=== PATIENT | male | born 1970 | race Caucasian/White ===

== ENCOUNTER 2016-05-09 11:45 | Emergency (ER) | payer OTHER ==
[~2016-05-09] VITALS: Ht 182.9 cm; Wt 113.4 kg
[2016-05-09 11:59] VITALS: BP 157/121
--- NOTE | 2016-05-09 14:12 | NUR ---
Patient ambulated to bed 8. RN evaluating patient at bedside.
--- NOTE | 2016-05-09 14:13 | NUR ---
PATIENT PRESENTS TO ED WITH SOB WITH HEADACHE X2 DAYS AND COUGH . DENIES N/V/D; SKIN IS PINK/WARM/DRY; AAOX4 WITH EVEN AND STEADY GAIT; LUNGS CLEAR BL; HR EVEN AND REGULAR; PT DENIES ANY FEVER, CP, AT THIS TIME; PATIENT STATES PAIN OF 3/10 AT THIS TIME; VSS; PATIENT POSITIONED FOR COMFORT; HOB ELEVATED; BEDRAILS UP X2; BED DOWN. ER MD MADE AWARE OF PT STATUS.
--- NOTE | 2016-05-09 14:13 | NUR ---
Dr. Agudelo evaluating patient at bedside.
--- NOTE | 2016-05-09 14:19 | NUR ---
EKG completed by EMT at bedside.
[2016-05-09] MEDS ORDERED: ASPIRIN 325 MG TAB PO ONE (14:20)
[2016-05-09] MEDS ORDERED: NITROGLYCERIN 0.4 MG TAB SL ONE (14:20)
[2016-05-09] MEDS ORDERED: ACETAMINOPHEN EXTRA STRENGTH 500 MG TAB PO ONE (14:20)
--- NOTE | 2016-05-09 17:00 | NUR ---
Patient discharged with v/s stable. Written and verbal after care instructions given and explained. Patient verbalized understanding. Ambulatory with . All questions addressed prior to discharge. Advised to follow up with PMD.
[2016-05-09 17:01] VITALS: BP 132/84
== END 2016-05-09 17:00 | disposition home or self-care (01) ==
LOC: MED 11:45
DX: J06.9 Acute upper respiratory infection, unspecified (principal); R07.81 Pleurodynia; F17.200 Nicotine dependence, unspecified, uncomplicated; I10 Essential (primary) hypertension; Z71.6 Tobacco abuse counseling
CPT/HCPCS: 36415; 71010; 80053; 83880; 84484; 85025; 85610; 85730; 93005; 99285; Q0092

== ENCOUNTER 2016-08-08 11:26 | Emergency (ER) | payer OTHER ==
[~2016-08-08] VITALS: Ht 185.4 cm; Wt 122.5 kg
[2016-08-08 11:39] VITALS: BP 155/102
--- NOTE | 2016-08-08 11:40 | NUR ---
Patient ambulated to OF to be evaluated as fast track by Dr. Matta.
--- NOTE | 2016-08-08 11:42 | NUR ---
Dr. Matta evaluating patient as fast track.
--- NOTE | 2016-08-08 11:48 | NUR ---
PATIENT IS A 45 YO MALE BIB SELF FOR RIGHT EAR PAIN AND THROAT PAIN. AWAKE AND ALERT ON ARRIVAL, NO FEVER AT THIS TIME.
[2016-08-08 12:17] VITALS: BP 142/86
--- NOTE | 2016-08-08 12:18 | NUR ---
Patient discharged with v/s stable. Written and verbal after care instructions given and explained. Patient alert, oriented and verbalized understanding of instructions. Ambulatory with steady gait. All questions addressed prior to discharge. ID band removed. Patient advised to follow up with PMD. Rx of BACTRIM AND TYLENOL given. Patient educated on indication of medication including possible reaction and side effects. Opportunity to ask questions provided and answered.
== END 2016-08-08 12:10 | disposition home or self-care (01) ==
LOC: MED 11:26
DX: H69.91 Unspecified Eustachian tube disorder, right ear (principal); I10 Essential (primary) hypertension
CPT/HCPCS: 99283

== ENCOUNTER 2017-04-18 13:54 | Emergency (ER) | payer OTHER ==
[~2017-04-18] VITALS: Ht 185.4 cm; Wt 125.2 kg
[2017-04-18 14:00] VITALS: BP 139/89
[2017-04-18] MEDS ORDERED: IBUPROFEN 600 MG TAB PO ONE (14:50)
[2017-04-18 15:57] VITALS: BP 149/91
== END 2017-04-18 15:57 | disposition home or self-care (01) ==
LOC: MED 13:54
DX: J06.9 Acute upper respiratory infection, unspecified (principal)
CPT/HCPCS: 99282

== ENCOUNTER 2017-05-11 11:09 | Emergency (ER) | payer OTHER ==
[~2017-05-11] VITALS: Ht 185.4 cm; Wt 124.9 kg
[2017-05-11 11:17] VITALS: BP 147/95
--- NOTE | 2017-05-11 11:24 | NUR ---
PT AMBULATED TO OF1.
--- NOTE | 2017-05-11 11:27 | NUR ---
46M BIB FAMILY C/O NON-PRODUCTIVE COUGH AND CONGESTION X 3 WEEKS; BL LUNG SOUNDS CLEAR, RR EVEN/UNLABORED, EQUAL RISE/FALL OF CHEST NOTED AT THIS TIME; PT C/O ACHING BODY ACHES, 5/10 AT THIS TIME; PT STATES WAS SEEN BY PCP, GIVEN MEDICATION FOR COUGH, STATES "STARTED FEELING BETTER", BUT STATES " I GOT SICK AGAIN 2 DAYS AGO"; PT AA&OX4, STATES NO N/V/D AT THIS TIME; SKIN IS WARM/DRY/INTACT WITH EVEN AND STEADY GAIT; PT RESTING IN OF, POSITIONED FOR COMFORT; ER MD MADE AWARE OF STATUS. WILL CONTINUE TO MONITOR.
--- NOTE | 2017-05-11 12:13 | NUR ---
ER MD DR. BARGER EVALUATING PT AT OF.
[2017-05-11 12:55] LABS: BASOPHILS % (AUTO) 0.8 % (0.0-2.0); EOSINOPHILS # (AUTO) 0.2 K/uL (0-0.4); EOSINOPHILS % (AUTO) 4.4 % (0.0-4.0); HEMATOCRIT 44.8 % (36-52); HEMOGLOBIN 15.2 g/dL (12.0-18.0); LYMPHOCYTES # (AUTO) 1.7 K/uL (2.0-11.5); LYMPHOCYTES % (AUTO) 32.6 % (20.5-51.1); MEAN CORPUSCULAR HEMOGLOBIN 28 pg (27-31); MEAN CORPUSCULAR HGB CONC 34 g/dL (33-37); MEAN CORPUSCULAR VOLUME 83 fL (80-94); MONOCYTES # (AUTO) 0.3 K/uL (0.8-1.0); MONOCYTES % (AUTO) 6.1 % (1.7-9.3); NEUTROPHILS % (AUTO) 56.1 % (42.2-75.2); PLATELET COUNT (AUTO) 244 K/uL (140-450); RED BLOOD CELL COUNT(AUTO) 5.43 MIL/uL (4.20-6.10); WHITE BLOOD COUNT (AUTO) 5.3 K/uL (4.8-10.8)
[2017-05-11 13:19] LABS: ALBUMIN 3.9 g/dL (3.4-5.0); CARBON DIOXIDE 27.2 mmol/L (21-32); POTASSIUM 4.2 mmol/L (3.5-5.1); TOTAL BILIRUBIN 0.6 mg/dL (0.0-1.0)
--- NOTE | 2017-05-11 13:37 | NUR ---
PT APPEARS TO BE RESTING COMFORTABLY IN OF; RR EVEN/UNLABORED; FAMILY AT BEDSIDE; WILL CONTINUE TO MONITOR.
[2017-05-11 14:12] VITALS: BP 120/94
--- NOTE | 2017-05-11 14:12 | NUR ---
Patient discharged with v/s stable. Written and verbal after care instructions given and explained. Patient alert, oriented and verbalized understanding of instructions. Ambulatory with steady gait. All questions addressed prior to discharge. ID band removed. Patient advised to follow up with PMD. Rx of AZITHROMYCIN 250MG TAB given. Patient educated on indication of medication including possible reaction and side effects. Opportunity to ask questions provided and answered.
== END 2017-05-11 14:12 | disposition home or self-care (01) ==
LOC: MED 11:09
DX: J40 Bronchitis, not specified as acute or chronic (principal)
CPT/HCPCS: 36415; 71045; 80053; 84484; 85025; 93005; 99285

== ENCOUNTER 2017-08-31 04:50 | Emergency (ER) | payer OTHER ==
[~2017-08-31] VITALS: Ht 185.4 cm; Wt 130.8 kg
[2017-08-31 04:58] VITALS: BP 158/98
--- NOTE | 2017-08-31 05:04 | NUR ---
PT TAKEN TO BED 8
--- NOTE | 2017-08-31 05:04 | NUR ---
46/M CAME IN W C/O GENERALIZED BODY ACHES, INTERMITTENT FEVER, DRY COUGH X 4 DAYS. PT AFERBILE. ALL LUNG SOUNDS CBTA, 16RR EVEN AND UNLABORED. PT ALSO REPORTS LT GROIN PAIN, NONTRAUMATIC. DENIES PMH/RX, TOOK ADVIL X 2 HOURS AGO WTH MODERATE RELIEF OF SX Addendum: 08/31/17 at 0509 by NADER ADENIKE N/V/D
[2017-08-31] MEDS: KETOROLAC 60 MG/2 ML VIAL IM ONE (05:18)
--- NOTE | 2017-08-31 05:33 | NUR ---
Dr. Hickman evaluating patient at bedside.
--- NOTE | 2017-08-31 05:53 | NUR ---
PHLEB AT BEDSIDE FOR LAB DRAWS
[2017-08-31 06:02] LABS: APPEARANCE,URINE CLEAR (CLEAR); BILIRUBIN,URINE NEGATIVE (NEGATIVE); BLOOD, URINE NEGATIVE (NEGATIVE); COLOR,URINE YELLOW (YELLOW); LEUKOCYTE ESTERASE ,URINE NEGATIVE (NEGATIVE); NITRITE, URINE NEGATIVE (NEGATIVE); PH,URINE 6.5 (5.0-9.0); UGLUCOSE NEGATIVE (NEGATIVE)
[2017-08-31 06:02] LABS: BASOPHILS # (AUTO) 0.1 K/uL (0.00-0.22); BASOPHILS % (AUTO) 0.6 % (0.0-2.0); EOSINOPHILS # (AUTO) 0.2 K/uL (0-0.4); HEMATOCRIT 40.6 % (36-52); HEMOGLOBIN 13.7 g/dL (12.0-18.0); LYMPHOCYTES # (AUTO) 1.4 K/uL (2.0-11.5); LYMPHOCYTES % (AUTO) 12.6 % (20.5-51.1); MEAN CORPUSCULAR HEMOGLOBIN 28 pg (27-31); MEAN CORPUSCULAR HGB CONC 34 g/dL (33-37); MEAN CORPUSCULAR VOLUME 84.1 fL (80-94); MONOCYTES # (AUTO) 0.9 K/uL (0.8-1.0); NEUTROPHILS # (AUTO) 8.3 K/uL (1.8-7.7); NEUTROPHILS % (AUTO) 76.8 % (42.2-75.2); PLATELET COUNT (AUTO) 196 K/uL (140-450); RED BLOOD CELL COUNT(AUTO) 4.83 MIL/uL (4.20-6.10); RED CELL DISTRIBUTION WIDTH 13.7 % (11.6-13.7); WHITE BLOOD COUNT (AUTO) 10.8 K/uL (4.8-10.8)
[2017-08-31 06:29] LABS: CREATININE 1.1 mg/dL (0.7-1.3)
[2017-08-31 06:43] LABS: ALBUMIN 3.2 g/dL (3.4-5.0); TOTAL BILIRUBIN 0.5 mg/dL (0.0-1.0)
[2017-08-31 07:02] VITALS: BP 126/71
== END 2017-08-31 07:01 | disposition home or self-care (01) ==
LOC: MED 04:50
DX: J06.9 Acute upper respiratory infection, unspecified (principal); I10 Essential (primary) hypertension
CPT/HCPCS: 36415; 80053; 81003; 85025; 96372; 99284; J1885

== ENCOUNTER 2018-12-07 15:40 | Emergency (ER) | payer OTHER ==
[~2018-12-07] VITALS: Ht 185.4 cm; Wt 129.3 kg
[2018-12-07 15:59] VITALS: BP 144/105
[2018-12-07] MEDS ORDERED: HYDROcodone/APAP 5/325 MG 1 TAB TAB PO ONE (17:55)
[2018-12-07] MEDS ORDERED: KETOROLAC 30 MG/ML VIAL IM ONE (18:15)
[2018-12-07] MEDS ORDERED: KETOROLAC 30 MG/ML VIAL ONE (18:25)
[2018-12-07 18:26] VITALS: BP 134/98
== END 2018-12-07 18:26 | disposition home or self-care (01) ==
LOC: MED 15:40
DX: M54.10 Radiculopathy, site unspecified (principal); M62.838 Other muscle spasm; I10 Essential (primary) hypertension
CPT/HCPCS: 96372; 99283; J1885

== ENCOUNTER 2019-03-18 10:50 | Emergency (ER) | payer OTHER ==
[~2019-03-18] VITALS: Ht 188 cm; Wt 132.9 kg
[2019-03-18 10:58] VITALS: BP 150/94
--- NOTE | 2019-03-18 11:24 | NUR ---
48/M BIB C/O COLD SYMPTOMS AND COUGH X 1 WEEK WITH HEADACHE & LEFT CHEST CRAMPING X THIS AM. PMH- HTN. PATIENT STATES PAIN OF 4/10 AT THIS TIME. PATIENT POSITIONED FOR COMFORT; HOB ELEVATED; BEDRAILS UP X1; BED DOWN. ER MD MADE AWARE OF PT STATUS.
--- NOTE | 2019-03-18 12:00 | NUR ---
FLU SWAB COLLECTED
[2019-03-18] MEDS ORDERED: AZITHROMYCIN 250 MG TAB PO ONE (12:45)
[2019-03-18] MEDS ORDERED: cloNIDine 0.1 MG TAB PO ONE (12:45)
--- NOTE | 2019-03-18 13:06 | NUR ---
NADR, PAIN 0/10
[2019-03-18 13:07] VITALS: BP 145/92
--- NOTE | 2019-03-18 13:07 | NUR ---
Patient discharged with v/s stable. Written and verbal after care instructions given and explained REGARDING BROCHITIS. Patient alert, oriented and verbalized understanding of instructions. Ambulatory with steady gait. All questions addressed prior to discharge. ID band removed. Patient advised to follow up with PMD. Rx of AZITHROMYCIN AND PROMETHAZINE given. Patient educated on indication of medication including possible reaction and side effects. Opportunity to ask questions provided and answered. PT GIVEN EXCUSE FOR WORK UNTIL THE 03/20/19
== END 2019-03-18 13:07 | disposition home or self-care (01) ==
LOC: MED 10:50
DX: J40 Bronchitis, not specified as acute or chronic (principal); I10 Essential (primary) hypertension; Z87.891 Personal history of nicotine dependence
CPT/HCPCS: 71045; 87804; 99284